=== PATIENT | female | born 1960 ===

== ENCOUNTER 2022-12-23 05:52 | Day surgery (SDC) | payer OTHER ==
[2022-12-23] MEDS ORDERED: Dextrose 5%-0.45% NaCl 1,000 ML IV SCH (06:00)
[2022-12-23] MEDS ORDERED: Midazolam 1 MG/ML 2 ML SDV ONE (06:38)
[2022-12-23] MEDS ORDERED: fentaNYL 100 MCG/2 ML SDV ONE (06:38)
[2022-12-23] MEDS ORDERED: fentaNYL 100 MCG/2 ML SDV IV ONE ×2 (06:54→06:55)
[2022-12-23] MEDS ORDERED: Midazolam 1 MG/ML 2 ML SDV IV ONE ×3 (06:54→06:56)
== END 2022-12-23 08:49 | disposition home or self-care (01) ==
LOC: DL.ENDO 05:52
PROVIDERS: ATTEND Internal Medicine Gastroenterology
DX: R12 Heartburn (principal); R10.11 Right upper quadrant pain; E66.09 Other obesity due to excess calories; F17.200 Nicotine dependence, unspecified, uncomplicated; I10 Essential (primary) hypertension; E78.5 Hyperlipidemia, unspecified; F41.1 Generalized anxiety disorder; Z90.710 Acquired absence of both cervix and uterus; Z90.49 Acquired absence of other specified parts of digestive tract; Z90.89 Acquired absence of other organs; Z68.34 Body mass index [BMI] 34.0-34.9, adult; Z79.899 Other long term (current) drug therapy
CPT/HCPCS: 43239; 87077; J2250; J3010; J7042

== ENCOUNTER 2022-12-24 07:27 | Day surgery (SDC) | payer OTHER ==
[~2022-12-24 07:27] MED LIST: Dextrose 5%-0.45% NaCl 1,000 ML IV SCH
[2022-12-24] MEDS ORDERED: fentaNYL 100 MCG/2 ML SDV ONE (07:38)
[2022-12-24] MEDS ORDERED: Midazolam 1 MG/ML 2 ML SDV ONE (07:38)
[2022-12-24] MEDS ORDERED: fentaNYL 100 MCG/2 ML SDV IV ONE ×3 (08:09→08:21)
[2022-12-24] MEDS ORDERED: Midazolam 1 MG/ML 2 ML SDV IV ONE ×6 (08:10→08:18)
== END 2022-12-24 09:53 | disposition home or self-care (01) ==
LOC: DL.ENDO 07:27
PROVIDERS: ATTEND Internal Medicine Gastroenterology
DX: Z12.11 Encounter for screening for malignant neoplasm of colon (principal); K57.30 Diverticulosis of large intestine without perforation or abscess without bleeding; F17.210 Nicotine dependence, cigarettes, uncomplicated; E78.5 Hyperlipidemia, unspecified; F41.1 Generalized anxiety disorder; I10 Essential (primary) hypertension; E66.09 Other obesity due to excess calories; Z68.30 Body mass index [BMI] 30.0-30.9, adult; Z90.710 Acquired absence of both cervix and uterus; Z90.49 Acquired absence of other specified parts of digestive tract; Z90.09 Acquired absence of other part of head and neck
CPT/HCPCS: 45378; J2250; J3010; J7042